=== PATIENT | female | born 1985 | race Caucasian/White ===

== ENCOUNTER 2023-02-07 08:15 | Outpatient (CLI) | payer OTHER ==
[2023-02-07] MEDS ORDERED: Iopamidol 300 61% 100 ML VIAL FS ONE (14:23)
== END 2023-02-07 08:16 | disposition home or self-care (01) ==
LOC: CSHCT 08:15
PROVIDERS: ATTEND Physician Assistant
DX: R10.33 Periumbilical pain (principal); K80.20 Calculus of gallbladder without cholecystitis without obstruction; K42.9 Umbilical hernia without obstruction or gangrene
CPT/HCPCS: 74177; Q9967

== ENCOUNTER 2024-02-17 20:18 | Emergency (ER) | payer OTHER ==
[2024-02-17] MEDS ORDERED: Boostrix 0.5 ML (Tdap) VIAL (>/=7 yrs of age) ONE (20:54)
[2024-02-17] MEDS ORDERED: Ibuprofen 200 MG TAB ONE (20:58)
== END 2024-02-17 21:29 | disposition home or self-care (01) ==
LOC: CSHERS 20:18
DX: S01.132A Puncture wound without foreign body of left eyelid and periocular area, initial encounter (principal); Z23 Encounter for immunization; X58.XXXA Exposure to other specified factors, initial encounter
CPT/HCPCS: 90471; 90715

== ENCOUNTER 2024-03-30 18:23 | Emergency (ER) | payer OTHER ==
[2024-03-30] MEDS ORDERED: Lorazepam 2 MG/ML VIAL ONE (19:04)
[2024-03-30 19:22] LABS: #Basophils 0.03 10x3/uL (0.0-0.2); #Eosinophils 0.04 10x3/uL (0.0-0.5); #Monocytes 0.46 10x3/uL (0.0-1.1); #Neutrophils 4.67 10x3/uL (1.5-8.4); %Basophils 0.4 % (0.0-2.0); %Eosinophils 0.5 % (0.0-6.0); %Monocytes 5.9 % (0.0-10.0); %Neutrophils 59.9 % (40.0-75.0); Hematocrit 38.1 % (34.9-44.5); Hemoglobin 13.2 g/dL (12.0-15.5); Mean Corpuscular HGB CONC 34.6 g/dL (32.0-36.0); Mean Corpuscular Hemoglobin 31.5 pg (27.0-33.0); Mean Corpuscular Volume 90.9 fL (81.6-98.3); Mean Platelet Volume 9.2 fL (7.4-10.4); Platelet Count 272 10x3/uL (150-450); RBC Distribution Width 12.3 % (11.5-14.5); Red Blood Cell (RBC) Count 4.19 10x6/uL (3.90-5.03); White Blood Cell (WBC) Count 7.8 10x3/uL (3.5-10.5)
[2024-03-30 19:29] LABS: BHCG - Serum Negative (NEGATIVE); Pregs Control Background? CLEAR/WHITE (CLR/WHITE); Pregs Control Bar Appear? YES (CONTROL BAR)
[2024-03-30 19:35] LABS: Anion Gap 15 mmol/L (10-20); BUN (Urea Nitrogen) 8 mg/dL (7.0-18.7); Calc. Creatinine Clearance 0 mL/min (70-130); Calcium 8.9 mg/dL (7.8-10.44); Carbon Dioxide 19 mmol/L (22-29); Chloride 106 mmol/L (98-107); Estimated GFR 109; Glucose 94 mg/dL (70-105); Magnesium 1.8 mg/dL (1.6-2.6); Potassium 2.9 mmol/L (3.5-5.1); Sodium 137 mmol/L (136-145)
[2024-03-30] MEDS ORDERED: Potassium Chloride 20 MEQ TAB ONE (20:31)
== END 2024-03-30 20:53 | disposition home or self-care (01) ==
LOC: CSHERS 18:23
DX: E87.6 Hypokalemia (principal); F90.9 Attention-deficit hyperactivity disorder, unspecified type
CPT/HCPCS: 80048; 83735; 84703; 85025; 93005; 96374; J2060

== ENCOUNTER 2024-06-13 21:32 | Emergency (ER) | payer OTHER | END 2024-06-13 22:36 | disposition home or self-care (01) | LOC: CSHERS 21:32 | DX: S63.501A Unspecified sprain of right wrist, initial encounter (principal); W19.XXXA Unspecified fall, initial encounter; Y93.51 Activity, roller skating (inline) and skateboarding; Y92.009 Unspecified place in unspecified non-institutional (private) residence as the place of occurrence of the external cause | CPT/HCPCS: 99283 ==

== ENCOUNTER 2025-05-09 13:45 | Emergency (ER) | payer OTHER ==
[2025-05-09] MEDS ORDERED: HYDROcodone/Acetaminophen 5/325 mg Tablet ONE (14:26)
== END 2025-05-09 16:54 | disposition home or self-care (01) ==
LOC: CSHERS 13:45
DX: S39.012A Strain of muscle, fascia and tendon of lower back, initial encounter (principal); S30.0XXA Contusion of lower back and pelvis, initial encounter; W17.89XA Other fall from one level to another, initial encounter
CPT/HCPCS: 72100; 72220; 99283